=== PATIENT | male | born 1990 | race African-American/Black ===

== ENCOUNTER 2019-03-13 22:41 | Emergency (ER) | payer SELFPAY ==
[~2019-03-13] VITALS: Ht 167.6 cm; Wt 73.0 kg
[2019-03-13 23:29] VITALS: BP 128/96
== END 2019-03-14 01:31 | disposition left against medical advice (07) ==
LOC: ER 22:41
DX: N50.819 Testicular pain, unspecified (principal); Z53.21 Procedure and treatment not carried out due to patient leaving prior to being seen by health care provider

== ENCOUNTER 2019-03-14 10:13 | Emergency (ER) | payer SELFPAY ==
[~2019-03-14] VITALS: Ht 170.2 cm; Wt 73.0 kg
[2019-03-14 10:15] VITALS: BP 126/72
== END 2019-03-14 13:46 | disposition home or self-care (01) ==
LOC: ER 10:13
DX: R10.2 Pelvic and perineal pain (principal)
CPT/HCPCS: 99282; 99283

== ENCOUNTER 2020-07-10 17:03 | Emergency (ER) | payer MEDICAID ==
[~2020-07-10] VITALS: Ht 167.6 cm; Wt 75.0 kg
[2020-07-10] MEDS ORDERED: ACETAMINOPHEN 500MG TABLET PO ONE (18:30)
[2020-07-10 20:07] VITALS: BP 131/74
== END 2020-07-10 20:07 | disposition home or self-care (01) ==
LOC: ER 17:03
DX: S62.632A Displaced fracture of distal phalanx of right middle finger, initial encounter for closed fracture (principal); R03.0 Elevated blood-pressure reading, without diagnosis of hypertension; Y04.0XXA Assault by unarmed brawl or fight, initial encounter; Y93.89 Activity, other specified; Y92.89 Other specified places as the place of occurrence of the external cause
CPT/HCPCS: 29130; 73140; 99283